=== PATIENT | female | born 1980 | race African-American/Black ===

== ENCOUNTER 2017-07-08 14:36 | Emergency (ER) | payer OTHER ==
[~2017-07-08] VITALS: Ht 149.9 cm; Wt 66.2 kg
[~2017-07-08 14:36] MED LIST: BACTRIM,SEPT1 TABLET PO; FIORICET,ESG1 TABLET PO; FLEXERIL10 MG PO; KEFLEX500 MG PO; PRENATABS FA T1 EACH PO
[2017-07-08 15:22] LABS: HEMATOCRIT 41.1 % (36.0-46.0); HEMOGLOBIN 13.6 G/DL (11.9-15.5); MCH 29.2 PG (29.0-34.0); MCHC 33.1 G/DL (30.0-36.0); MCV 88.2 FL (83-99); PLATELET COUNT 279 K/uL (156-360); RBC DIS.WIDTH-CV 12.9 % (11.8-14.6); RBC DIS.WIDTH-SD 42.2 % (39-53); RED BLOOD COUNT 4.66 M/uL (3.80-5.20); WHITE BLOOD COUNT 9.9 K/uL (4.1-10.2)
[2017-07-08 15:35] LABS: CHLORIDE 109 mEq/L (99-109); POTASSIUM 3.9 mEq/L (3.7-5.4); SODIUM 141 mEq/L (136-147)
[2017-07-08 15:36] LABS: GLUCOSE 96 mg/dL (70-99)
[2017-07-08 15:40] LABS: CREATININE 0.7 mg/dL (0.6-1.3); GFR ESTIMATE (CALCULATED) > 59 mL/min/
[2017-07-08 15:41] LABS: UREA NITROGEN (BUN) 15 mg/dL (9-23)
[2017-07-08 15:46] LABS: TROP-I INTERPRETATION NEGATIVE; TROPONIN-I < 0.01 ng/mL (0.0-0.30)
[2017-07-08 19:03] LABS: TROP-I INTERPRETATION NEGATIVE; TROPONIN-I < 0.01 ng/mL (0.0-0.30)
[2017-07-08 19:30] VITALS: BP 103/49
== END 2017-07-08 19:59 | disposition home or self-care (01) ==
LOC: EME 14:36
PROVIDERS: Nurse Practitioner Family
DX: R10.13 Epigastric pain (principal); K21.9 Gastro-esophageal reflux disease without esophagitis; F32.9 Major depressive disorder, single episode, unspecified
CPT/HCPCS: 71046; 80048; 84484; 85027; 93005; 99281; 99284